=== PATIENT | female | born 1980 | race Caucasian/White ===

== ENCOUNTER 2016-09-01 06:00 | Day surgery (SDC) | payer OTHER, BC, MEDICAID ==
[~2016-09-01] VITALS: Ht 162.6 cm; Wt 78.5 kg
[~2016-09-01 06:00] MED LIST: ALPR0.5T96 PO; DOCU-144 PO; DULO30CA51 PO; ELMIRON PO; LORA10CA PO; MTH/1CAP7 PO; TRAM50TA92 PO
[2016-09-01] MEDS ORDERED: CEFAZOLIN 1 GM IVPB PREMIX 50 ML IV ONE ×2 (07:00→07:13)
[2016-09-01] MEDS ORDERED: NS IRRIG SOLN 1000 ML IR ONE (07:13)
[2016-09-01] MEDS ORDERED: SEVOFLURANE 15 MIN GAS INH ONE (07:13)
[2016-09-01] MEDS ORDERED: fentaNYL CITRATE 250 MCG/5 ML AMP IV ONE (07:13)
[2016-09-01] MEDS ORDERED: LR 1,000 ML IV.SOLN IV ONE (07:13)
[2016-09-01] MEDS ORDERED: KETOROLAC TROMETHAMINE 30 MG VIAL IVP ONE ×2 (07:13→12:00)
[2016-09-01] MEDS ORDERED: ROCURONIUM BROMIDE 10 MG/ML (ZEMURON) IV ONE (07:13)
[2016-09-01] MEDS ORDERED: PROPOFOL 200MG/ 20ML VIAL (DIPRIVAN) IV ONE (07:13)
[2016-09-01] MEDS ORDERED: ONDANSETRON HCL 4 MG/2 ML VIAL IVP ONE (07:13)
[2016-09-01] MEDS ORDERED: MIDAZOLAM HCL 5 MG/5 ML VIAL IVP ONE (07:13)
[2016-09-01] MEDS ORDERED: LR 1,000 ML IV SCH (08:18)
[2016-09-01] MEDS ORDERED: HYDROmorphone 2 MG/ML VIAL IVP PRN ×2 (08:30)
[2016-09-01] MEDS ORDERED: ONDANSETRON HCL 4 MG/2 ML VIAL IVP PRN ×2 (08:30→10:00)
[2016-09-01] MEDS ORDERED: MEPERIDINE HCL/PF 25 MG/ML DISP.SYRIN IVP PRN ×2 (08:30)
[2016-09-01] MEDS ORDERED: OXYCODONE/ACETAMINOPHEN 5-325 TABLET PO PRN ×2 (10:00)
[2016-09-01] MEDS ORDERED: HYDROcodone/ACETAMIN 5-325 MG TAB (NORCO/ VICODIN) PO PRN (10:00)
[2016-09-01] MEDS ORDERED: HYDROmorphone 1 MG INJ. 1 MG/ML AMPUL ONE (10:26)
[2016-09-01 10:52] VITALS: BP_SYST 126
[2016-09-01] MEDS ORDERED: OXYCODONE/ACETAMINOPHEN 5-325 TABLET ONE (11:21)
[2016-09-01] MEDS ORDERED: KETOROLAC TROMETHAMINE 30 MG VIAL ONE (12:10)
[2016-09-01] MEDS ORDERED: SIMETHICONE 80 MG TAB.CHEW PO SCH (13:00)
== END 2016-09-01 13:35 | disposition home or self-care (01) ==
LOC: SDS 06:00 → SMU 06:00 → SDS 13:35
PROVIDERS: ATTEND Specialist
DX: N80.9 Endometriosis, unspecified (principal); N73.6 Female pelvic peritoneal adhesions (postinfective); N83.209 Unspecified ovarian cyst, unspecified side
CPT/HCPCS: 52000; 57000; 58542; 88302; C1727; J0690; J1170; J1885; J2250; J2405; J2704; J3010; J7120; E0190

== ENCOUNTER 2017-03-05 09:14 | Emergency (ER) | payer OTHER, BC, MEDICAID ==
[~2017-03-05] VITALS: Ht 162.6 cm; Wt 63.0 kg
[2017-03-05 09:24] VITALS: BP_SYST 136
[2017-03-05] MEDS ORDERED: NACL 0.9% 1,000 ML IV ONE (09:45)
[2017-03-05] MEDS ORDERED: PIPERACILLIN/TAZO 3.38 GM in NS 50 ML IV ONE (09:45)
[2017-03-05 10:09] LABS: BILIRUBIN,URINE NEGATIVE (NEGATIVE); BLOOD, URINE NEGATIVE (NEGATIVE); CLARITY/URINE SL HAZY (CLEAR); COLOR,URINE AMBER (YELLOW); GLUCOSE,URINE TRACE (NEGATIVE); KETONES,URINE NEGATIVE (NEGATIVE); LEUKOCYTE ESTERASE ,URINE NEGATIVE (NEGATIVE); PROTEIN URINE 1+ (NEGATIVE)
[2017-03-05] MEDS ORDERED: PIPERACILLIN/TAZOBACTAM 3.375 GM/VIAL (ZOSYN) IV ONE (10:13)
[2017-03-05 10:20] LABS: NITRITE, URINE NEGATIVE (NEGATIVE)
[2017-03-05 10:27] LABS: BASOPHILS # (AUTO) 0.1 K/uL (0.0-0.2); BASOPHILS % (AUTO) 0.8 % (0.0-2.0); EOSINOPHILS # (AUTO) 0.1 K/uL (0.0-0.4); EOSINOPHILS % (AUTO) 1.8 % (0.0-4.0); HEMATOCRIT 45.7 % (36-48); HEMOGLOBIN 14.8 g/dL (12.0-16.0); LYMPHOCYTES # (AUTO) 2.4 K/uL (1.0-5.5); LYMPHOCYTES % (AUTO) 33.1 % (20.5-51.5); MEAN CORPUSCULAR HEMOGLOBIN 29 pg (27-31); MEAN CORPUSCULAR HGB CONC 32 % (32-36); MEAN CORPUSCULAR VOLUME 91 fL (79.0-98.0); MONOCYTES # (AUTO) 0.3 K/uL (0.0-1.0); MONOCYTES % (AUTO) 4.1 % (1.7-9.3); NEUTROPHILS # (AUTO) 4.4 K/uL (1.8-7.7); NEUTROPHILS % (AUTO) 60.2 % (40.0-70.0); PLATELET COUNT (AUTO) 233 K/uL (130-430); RED BLOOD CELL COUNT(AUTO) 5.05 MIL/uL (4.2-6.2); RED CELL DISTRIBUTION WIDTH 11.4 % (9.0-15.0); WHITE BLOOD COUNT (AUTO) 7.3 K/uL (4.8-10.8)
[2017-03-05 10:35] LABS: BACTERIA,URINE FEW /HPF (None Seen); RBC,URINE 0-3 /HPF (0-3); WBC,URINE 0-3 /HPF (0-3)
[2017-03-05 10:36] LABS: MUCUS,URINE 1+ /LPF (None Seen)
[2017-03-05 10:40] LABS: CALCIUM 10.2 mg/dL (8.4-11.0); CREATININE 0.99 mg/dL (0.55-1.30); POTASSIUM 3.3 mmol/L (3.5-5.1)
[2017-03-05 10:44] LABS: ALBUMIN 4.8 g/dL (3.4-4.8); TOTAL BILIRUBIN 0.7 mg/dL (0.0-1.0)
[2017-03-05 10:51] LABS: INR 1.1 (0.8-1.2); PROTHROMBIN TIME 10.7 SECS (9.5-12.5)
[2017-03-05 11:50] VITALS: BP_SYST 120
== END 2017-03-05 11:50 | disposition home or self-care (01) ==
LOC: SED 09:14
DX: R10.9 Unspecified abdominal pain (principal); R11.2 Nausea with vomiting, unspecified; R03.0 Elevated blood-pressure reading, without diagnosis of hypertension; Z90.710 Acquired absence of both cervix and uterus; Z90.49 Acquired absence of other specified parts of digestive tract; Z88.5 Allergy status to narcotic agent; Z91.040 Latex allergy status
CPT/HCPCS: 36415; 71010; 74176; 80053; 81000; 83605; 83690; 85025; 85610; 87040; 93005; 96365; 99285; J2543; J7030; J7060

== ENCOUNTER 2020-10-26 10:15 | Emergency (ER) | payer OTHER, MEDICAID ==
[~2020-10-26] VITALS: Ht 160 cm; Wt 61.2 kg
[~2020-10-26 10:15] MED LIST changes: +ALPR0.5T PO; -ALPR0.5T96 PO; -DULO30CA51 PO; +DULO30CA52 PO
[2020-10-26 10:23] VITALS: BP_SYST 141
[2020-10-26] MEDS ORDERED: KETOROLAC TROMETHAMINE 60 MG/2 ML VIAL IM ONE (10:30)
[2020-10-26 11:00] LABS: BILIRUBIN,URINE 1+ (NEGATIVE); BLOOD, URINE 3+ (NEGATIVE); CLARITY/URINE SL CLOUDY (CLEAR); COLOR,URINE YELLOW (YELLOW); GLUCOSE,URINE NEGATIVE (NEGATIVE); KETONES,URINE NEGATIVE (NEGATIVE); LEUKOCYTE ESTERASE ,URINE NEGATIVE (NEGATIVE); NITRITE, URINE NEGATIVE (NEGATIVE); PROTEIN URINE 1+ (NEGATIVE); UROBILINOGEN,URINE 0.2 (0.2-1.0)
[2020-10-26 11:02] LABS: BASOPHILS % (AUTO) 0.5 % (0.0-2.0); EOSINOPHILS # (AUTO) 0.1 K/uL (0.0-0.4); HEMATOCRIT 44.7 % (36-48); HEMOGLOBIN 15.4 g/dL (12.0-16.0); LYMPHOCYTES # (AUTO) 1.5 K/uL (1.0-5.5); LYMPHOCYTES % (AUTO) 16.1 % (20.5-51.5); MEAN CORPUSCULAR HEMOGLOBIN 30 pg (27-31); MEAN CORPUSCULAR HGB CONC 34 % (32-36); MEAN CORPUSCULAR VOLUME 88 fL (79.0-98.0); MONOCYTES # (AUTO) 0.5 K/uL (0.0-1.0); MONOCYTES % (AUTO) 5.7 % (1.7-9.3); NEUTROPHILS # (AUTO) 7.3 K/uL (1.8-7.7); NEUTROPHILS % (AUTO) 76.7 % (40.0-70.0); PLATELET COUNT (AUTO) 153 K/uL (130-430); RED BLOOD CELL COUNT(AUTO) 5.11 MIL/uL (4.2-6.2); RED CELL DISTRIBUTION WIDTH 12.5 % (9.0-15.0); WHITE BLOOD COUNT (AUTO) 9.5 K/uL (4.8-10.8)
[2020-10-26 11:08] LABS: CREATININE 1.1 mg/dL (0.55-1.30); POTASSIUM 3.3 mmol/L (3.5-5.1)
[2020-10-26 11:13] LABS: ALBUMIN 4.2 g/dL (3.4-4.8); C-REACTIVE PROTEIN QUANT 0.4 mg/dL (0-0.5); TOTAL BILIRUBIN 0.4 mg/dL (0.0-1.0)
[2020-10-26 11:19] LABS: RBC,URINE 20-50 /HPF (0-3)
[2020-10-26 11:20] LABS: BACTERIA,URINE RARE /HPF (None Seen); MUCUS,URINE 2+ /LPF (None Seen); URINE AMORPHOUS URATE 1+ /HPF (None Seen); WBC,URINE 0-3 /HPF (0-3)
[2020-10-26 11:23] LABS: PROTHROMBIN TIME 10.4 SECS (9.5-12.5)
[2020-10-26] MEDS ORDERED: IBUP-1969 PO (11:53)
[2020-10-26] MEDS ORDERED: HYDR-3917 PO (11:53)
[2020-10-26 12:11] VITALS: BP_SYST 141
== END 2020-10-26 12:11 | disposition home or self-care (01) ==
LOC: SED 10:15
DX: N23 Unspecified renal colic (principal); Z91.040 Latex allergy status; Z88.5 Allergy status to narcotic agent; Z79.899 Other long term (current) drug therapy
CPT/HCPCS: 36415; 74176; 76376; 80053; 81000; 81025; 82150; 83605; 83690; 84703; 85025; 85610; 85730; 86140; 96372; 99284; J1885

== ENCOUNTER 2020-12-03 12:54 | Emergency (ER) | payer OTHER, MEDICAID ==
[~2020-12-03] VITALS: Ht 162.6 cm; Wt 65.8 kg
[~2020-12-03 12:54] MED LIST changes: +HYDR-3917 PO; +IBUP-1969 PO
[2020-12-03 13:00] VITALS: BP_SYST 126
--- NOTE | 2020-12-03 13:25 | NUR ---
PT TO BED 8 FOR EVALUATION. REPORT TO KASH BOLES WHO WILL ASSUME CARE.
--- NOTE | 2020-12-03 13:30 | NUR ---
Pt walked in to ER with c/o flank pain and pain with urination x2 days. Denies fever at this time. V/S stable, no acute distress noted. Urine sent to lab
--- NOTE | 2020-12-03 13:45 | NUR ---
ER Dr. Blanca at bedside examining patient.
[2020-12-03 14:09] LABS: BILIRUBIN,URINE NEGATIVE (NEGATIVE); BLOOD, URINE 3+ (NEGATIVE); CLARITY/URINE CLOUDY (CLEAR); COLOR,URINE RED (YELLOW); GLUCOSE,URINE NEGATIVE (NEGATIVE); KETONES,URINE NEGATIVE (NEGATIVE); LEUKOCYTE ESTERASE ,URINE NEGATIVE (NEGATIVE); NITRITE, URINE POSITIVE (NEGATIVE); PH,URINE 7.5 (5.0-8.0); PROTEIN URINE 3+ (NEGATIVE); UROBILINOGEN,URINE 0.2 (0.2-1.0)
[2020-12-03 14:19] LABS: RBC,URINE >100 /HPF (0-3)
[2020-12-03 14:20] LABS: BACTERIA,URINE FEW /HPF (None Seen); WBC,URINE 0-3 /HPF (0-3)
[2020-12-03 14:57] LABS: BASOPHILS # (AUTO) 0.1 K/uL (0.0-0.2); EOSINOPHILS # (AUTO) 0.3 K/uL (0.0-0.4); EOSINOPHILS % (AUTO) 4.8 % (0.0-4.0); HEMATOCRIT 42.1 % (36-48); HEMOGLOBIN 14.2 g/dL (12.0-16.0); LYMPHOCYTES # (AUTO) 2.1 K/uL (1.0-5.5); LYMPHOCYTES % (AUTO) 29.1 % (20.5-51.5); MEAN CORPUSCULAR HEMOGLOBIN 30 pg (27-31); MEAN CORPUSCULAR HGB CONC 34 % (32-36); MEAN CORPUSCULAR VOLUME 89 fL (79.0-98.0); MONOCYTES # (AUTO) 0.5 K/uL (0.0-1.0); MONOCYTES % (AUTO) 7.3 % (1.7-9.3); NEUTROPHILS # (AUTO) 4.1 K/uL (1.8-7.7); NEUTROPHILS % (AUTO) 57.8 % (40.0-70.0); PLATELET COUNT (AUTO) 160 K/uL (130-430); RED BLOOD CELL COUNT(AUTO) 4.76 MIL/uL (4.2-6.2); RED CELL DISTRIBUTION WIDTH 12.5 % (9.0-15.0); WHITE BLOOD COUNT (AUTO) 7.2 K/uL (4.8-10.8)
[2020-12-03 15:06] LABS: C-REACTIVE PROTEIN QUANT 0.5 mg/dL (0-0.5)
[2020-12-03 15:12] LABS: PROTHROMBIN TIME 10.3 SECS (9.5-12.5)
[2020-12-03 15:18] LABS: POTASSIUM 4.1 mmol/L (3.5-5.1)
[2020-12-03 15:19] LABS: CREATININE 0.76 mg/dL (0.55-1.30)
[2020-12-03 15:28] LABS: ALBUMIN 3.8 g/dL (3.4-4.8); TOTAL BILIRUBIN 0.4 mg/dL (0.0-1.0)
[2020-12-03] MEDS ORDERED: IBUP-1969 PO (16:43)
[2020-12-03] MEDS ORDERED: NITR-85 PO (16:43)
[2020-12-03] MEDS ORDERED: HYDR-3917 PO (16:43)
[2020-12-03] MEDS: cefTRIAXone 1 GM in LIDOCAINE 1%, 20 ML MDV 2.1 ML IM ONE (16:47)
--- NOTE | 2020-12-03 16:55 | NUR ---
Patient given written and verbal discharge instructions and verbalizes understanding. ER MD discussed with patient the results and treatment provided. Patient in stable condition. ID arm band removed. Rx of Macrobid and Motrin given. Patient educated on pain management and to follow up with PMD. Pain Scale 0. Opportunity for questions provided and answered. Medication side effect fact sheet provided.
[2020-12-03 16:56] VITALS: BP_SYST 126
== END 2020-12-03 16:55 | disposition home or self-care (01) ==
LOC: SED 12:54
DX: N12 Tubulo-interstitial nephritis, not specified as acute or chronic (principal); Z91.040 Latex allergy status; Z88.5 Allergy status to narcotic agent; Z79.899 Other long term (current) drug therapy
CPT/HCPCS: 36415; 74176; 76376; 80053; 81000; 82150; 83605; 83690; 84703; 85025; 85610; 85730; 86140; 87086; 96372; 99284; J0696; J2001

== ENCOUNTER 2020-12-17 10:59 | Emergency (ER) | payer OTHER, MEDICAID ==
[~2020-12-17] VITALS: Ht 162.6 cm; Wt 65.8 kg
[~2020-12-17 10:59] MED LIST changes: +NITR-85 PO
[2020-12-17 11:00] VITALS: BP_SYST 121
[2020-12-17 12:06] LABS: BASOPHILS % (AUTO) 0.7 % (0.0-2.0); EOSINOPHILS # (AUTO) 0.3 K/uL (0.0-0.4); EOSINOPHILS % (AUTO) 4.7 % (0.0-4.0); HEMATOCRIT 41.2 % (36-48); HEMOGLOBIN 13.9 g/dL (12.0-16.0); LYMPHOCYTES # (AUTO) 2.1 K/uL (1.0-5.5); LYMPHOCYTES % (AUTO) 37.4 % (20.5-51.5); MEAN CORPUSCULAR HEMOGLOBIN 30 pg (27-31); MEAN CORPUSCULAR HGB CONC 34 % (32-36); MEAN CORPUSCULAR VOLUME 88 fL (79.0-98.0); MONOCYTES # (AUTO) 0.4 K/uL (0.0-1.0); MONOCYTES % (AUTO) 7.2 % (1.7-9.3); NEUTROPHILS # (AUTO) 2.7 K/uL (1.8-7.7); PLATELET COUNT (AUTO) 153 K/uL (130-430); RED BLOOD CELL COUNT(AUTO) 4.68 MIL/uL (4.2-6.2); RED CELL DISTRIBUTION WIDTH 12.5 % (9.0-15.0); WHITE BLOOD COUNT (AUTO) 5.5 K/uL (4.8-10.8)
[2020-12-17 12:13] LABS: ANION GAP 5 (5-15); CALCIUM 8.5 mg/dL (8.4-11.0); CHLORIDE 107 mmol/L (98-107); CREATININE 1.02 mg/dL (0.55-1.30); GLUCOSE 82 mg/dL (70-99); POTASSIUM 3.7 mmol/L (3.5-5.1); SODIUM SERUM 144 mmol/L (136-145); UREA NITROGEN, BLOOD 11 mg/dL (8-21)
[2020-12-17 12:14] LABS: GFR AFRICAN AMERICAN 78 mL/min (>90)
[2020-12-17 12:16] LABS: BILIRUBIN,URINE NEGATIVE (NEGATIVE); BLOOD, URINE 3+ (NEGATIVE); CLARITY/URINE CLOUDY (CLEAR); COLOR,URINE RED (YELLOW); GLUCOSE,URINE NEGATIVE (NEGATIVE); KETONES,URINE NEGATIVE (NEGATIVE); LEUKOCYTE ESTERASE ,URINE NEGATIVE (NEGATIVE); NITRITE, URINE NEGATIVE (NEGATIVE); PROTEIN URINE 2+ (NEGATIVE); UROBILINOGEN,URINE 0.2 (0.2-1.0)
[2020-12-17 12:18] LABS: PROTHROMBIN TIME 10.1 SECS (9.5-12.5)
[2020-12-17 12:25] LABS: ALANINE AMINOTRANSFERASE 56 U/L (12-78); ALBUMIN 3.8 g/dL (3.4-4.8); AMYLASE 46 U/L (0-100); ASPARTATE AMINOTRANSFERASE 45 U/L (10-37); LIPASE 124 U/L (73-393); TOTAL BILIRUBIN 0.4 mg/dL (0.0-1.0)
[2020-12-17 12:32] LABS: C-REACTIVE PROTEIN QUANT < 0.2 mg/dL (0-0.5)
[2020-12-17 12:37] LABS: RBC,URINE >100 /HPF (0-3); WBC,URINE 0-3 /HPF (0-3)
[2020-12-17 12:38] LABS: BACTERIA,URINE RARE /HPF (None Seen); MUCUS,URINE 1+ /LPF (None Seen)
[2020-12-17 14:40] VITALS: BP_SYST 111
== END 2020-12-17 14:40 | disposition home or self-care (01) ==
LOC: SED 10:59
DX: N23 Unspecified renal colic (principal); Z88.5 Allergy status to narcotic agent; Z91.040 Latex allergy status
CPT/HCPCS: 36415; 76376; 80053; 81000; 81025; 82150; 83605; 83690; 84703; 85025; 85610-TC; 85730-TC; 86140; 99284

== ENCOUNTER 2022-11-11 17:15 | Emergency (ER) | payer OTHER, MEDICAID ==
[~2022-11-11] VITALS: Ht 160 cm; Wt 71.7 kg
[2022-11-11 17:27] VITALS: BP_SYST 116
[2022-11-11] MEDS ORDERED: IBUPROFEN 600 MG TABLET PO ONE (19:15)
[2022-11-11] MEDS ORDERED: NAPR-1172 PO (21:01)
[2022-11-11 21:59] VITALS: BP_SYST 116
== END 2022-11-11 21:59 | disposition home or self-care (01) ==
LOC: SED 17:15
DX: S20.211A Contusion of right front wall of thorax, initial encounter (principal); Z88.6 Allergy status to analgesic agent; Z91.040 Latex allergy status; Z79.899 Other long term (current) drug therapy; W19.XXXA Unspecified fall, initial encounter; Y93.89 Activity, other specified; Y92.89 Other specified places as the place of occurrence of the external cause; Y99.8 Other external cause status
CPT/HCPCS: 71250-TC; 76376; 99284

== ENCOUNTER 2024-02-09 19:05 | Emergency (ER) | payer MEDICAID, OTHER ==
[~2024-02-09] VITALS: Ht 160 cm; Wt 82.6 kg
[~2024-02-09 19:05] MED LIST changes: +NAPR-1172 PO
[2024-02-09 19:42] VITALS: BP_SYST 137; PULSE 84; RESP 18; TEMP 98.1; O2SAT 99
[2024-02-09] MEDS: KETOROLAC TROMETHAMINE 60 MG/2 ML VIAL IM ONE (22:47)
[2024-02-09 23:08] VITALS: BP_SYST 123; PULSE 72; RESP 18; TEMP 98.1; O2SAT 100
== END 2024-02-09 23:08 | disposition home or self-care (01) ==
LOC: SED 19:05
DX: S63.591A Other specified sprain of right wrist, initial encounter (principal); F41.9 Anxiety disorder, unspecified; Z79.899 Other long term (current) drug therapy; Z88.6 Allergy status to analgesic agent; Z91.040 Latex allergy status; X50.9XXA Other and unspecified overexertion or strenuous movements or postures, initial encounter; Y93.K1 Activity, walking an animal; Y92.89 Other specified places as the place of occurrence of the external cause; Y99.8 Other external cause status
CPT/HCPCS: 99283; 73110; 81025; 96372; J1885